=== PATIENT | male | born 1965 | race Native Hawaiian/Other Pacific Islander ===

== ENCOUNTER 2017-08-20 10:36 | Emergency (ER) | payer OTHER ==
[2017-08-20 10:42] VITALS: RESP 18
[2017-08-20] MEDS ORDERED: Sodium Chloride 0.9% 1,000 ML IV ONE (11:30)
[2017-08-20 11:52] LABS: BASO # 0.1 K/uL (0.0-0.2); BASO % 2.2 % (0.0-2.0); EOS # 0.1 K/uL (0.0-0.7); EOS % 1.2 % (0.0-4.0); HEMOGLOBIN 18.3 g/dL (12.0-18.0); LYMPH # 1.6 K/uL (1.0-4.3); MEAN CELL VOLUME 98.4 fL (80.0-94.0); MEAN CORPUSCULAR HEMOGLOBIN 34.6 pg (27.0-31.0); MEAN CORPUSCULAR HGB CONC 35.1 g/dL (33.0-37.0); MEAN PLATELET VOLUME 7.4 fL (7.2-11.7); MONO # 0.5 K/uL (0.0-0.8); MONO % 9.4 % (0.0-10.0); NEUT # 2.9 K/uL (1.8-7.0); NEUT % 56.2 % (50.0-75.0); NRBC % 0.2 % (0.0-2.0); RBC 5.3 Mil/uL (4.40-5.90); RED CELL DISTRIBUTION WIDTH 15.1 % (11.5-14.5); WHITE BLOOD COUNT 5.2 K/uL (4.8-10.8)
[2017-08-20] MEDS ORDERED: cefTRIAXone IV 1 gm in Dextros 50 ML IV ONE (12:02)
[2017-08-20] MEDS ORDERED: Azithromycin 500 MG in Sodium Chloride 0.9% 250 ML IV STA (12:02)
[2017-08-20 12:10] LABS: PROTHROMBIN TIME 10.9 SECONDS (9.7-12.2)
--- NOTE | 2017-08-20 12:19 | RAD ---
HISTORY: SOB, egophony R side, ? PNA COMPARISON: None available. TECHNIQUE: Chest PA and lateral FINDINGS: LUNGS: No focal consolidation. Please note that chest x-ray has limited sensitivity for the detection of pulmonary masses. PLEURA: No significant pleural effusion identified. No definite pneumothorax . CARDIOVASCULAR: Median sternotomy wires. Heart size appears within normal limits. OSSEOUS STRUCTURES: Degenerative changes of the spine. VISUALIZED UPPER ABDOMEN: Unremarkable. OTHER FINDINGS: None. IMPRESSION: No focal consolidation.
--- NOTE | 2017-08-20 12:21 | C.PDOC ---
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 Per sister, patient refused to be seen at an urgent care yesterday and today, reports patient fell to the floor at home when she visited. Patient does not take any antirejection medications. No other physical complaints at this time. Time Seen by Provider: 08/20/17 11:20 Chief Complaint (Nursing): Flu-like Symptoms History Per: Patient History/Exam Limitations: no limitations Onset/Duration Of Symptoms: Days (few days) Current Symptoms Are (Timing): Still Present Recent travel outside of the [place]: No Past Medical History Reviewed: Historical Data, Nursing Documentation, Vital Signs Vital Signs: Last Vital Signs Temp 97.9 F 08/20/17 10:41 Pulse 92 H 08/20/17 10:41 Resp 18 08/20/17 10:41 BP 156/63 H 08/20/17 10:41 Pulse Ox 95 08/20/17 12:32 - Medical History PMH: HTN Denies: Diabetes, Hepatitis, HIV, Chronic Kidney Disease, Seizures, Sexually Transmitted Disease Surgical History: CABG Family History: States: No Known Family Hx - Social History Hx Tobacco Use: Yes (heavy smoker) Hx Alcohol Use: Yes Hx Substance Use: No - Immunization History Hx Tetanus Toxoid Vaccination: No Hx Influenza Vaccination: No Hx Pneumococcal Vaccination: No Review Of Systems Constitutional: Positive for: Weakness, Other (lethargy) Respiratory: Positive for: Cough Physical Exam - Physical Exam Appears: Well, Non-toxic, No Acute Distress, Other (thin) Skin: Warm, Dry, Other (rosacea) Head: Atraumatic, Normacephalic Oral Mucosa: Moist Chest: Symmetrical, Other (midline sternotomy scar) Cardiovascular: Rhythm Regular, No Murmur Respiratory: Normal Breath Sounds (on left), No Rales, No Rhonchi, No Wheezing, Other (egophany on right) Gastrointestinal/Abdominal: Soft, No Tenderness Neurological/Psych: Oriented x3, Normal Speech, Normal Cognition ED Course And Treatment - Laboratory Results Result Diagrams: 08/20/17 11:47 08/20/17 11:47 Lab Interpretation: Abnormal (+ hemoconcentrated, ETOH 322 H) O2 Sat by Pulse Oximetry: 95 - Radiology CXR: Interpreted by Me CXR Interpretation: Yes: No Acute Disease Reevaluation Time: 12:55 Reassessment Condition: Improved Medical Decision Making Medical Decision Making: EKG, blood work, and UA ordered. Zithromax and IV fluids administered. though he denies it, continued ETOH Abuse ETOH 322 H hemoconcentrated, poor PO fluid intake, but pt eats and drinks well in ED, fully ambulatory Stumbling @ home prob more related to elevated alcohol level. LOW susp of aspiration PNA d/w Crisis, no ETOH detox beds available today- outpatient f/u instructed. Disposition Doctor Will See Patient In The: Office Counseled Patient/Family Regarding: Studies Performed, Diagnosis - Disposition Disposition: HOME/ ROUTINE Disposition Time: 12:56 Condition: GOOD Forms: [facility] (Romanian) - Clinical Impression Clinical Impression: Alcohol intoxication, Cough - Scribe Statement The provider has reviewed the documentation as recorded by the Scribe [place] Guy All medical record entries made by the Chivoibe were at my direction and personally dictated by me. I have reviewed the chart and agree that the record accurately reflects my personal performance of the history, physical exam, medical decision making, and the department course for this patient. I have also personally directed, reviewed, and agree with the discharge instructions and disposition.
[2017-08-20] MEDS ORDERED: cefTRIAXone IV 1 gm in Dextros 50 ML IVPB ONE (12:25)
[2017-08-20 12:38] LABS: ALB/GLOB RATIO 1.1 (1.0-2.1); ALBUMIN 3.9 g/dL (3.5-5.0); ALT/SGPT 117 U/L (21-72); AST/SGOT 386 U/L (17-59); BLOOD UREA NITROGEN 15 mg/dL (9-20); CALCIUM 8.2 mg/dl (8.6-10.4); GFR AFRICAN-AMERICAN > 60; GFR NON-AFRICAN AMERICAN > 60
[2017-08-20 13:26] VITALS: BP 148/64; PULSE 86; TEMP 98.2; O2SAT 97
== END 2017-08-20 13:34 | disposition home or self-care (01) ==
LOC: C.ER 10:36
DX: F10.129 Alcohol abuse with intoxication, unspecified (principal); R05 Cough; I10 Essential (primary) hypertension; F17.210 Nicotine dependence, cigarettes, uncomplicated
CPT/HCPCS: 71046; 80053; 80320; 84484; 85025; 85610; 85730; 87040; 87804; 96361; 96365; 96375; 99284; J0456; J0696; J7040; J7050